=== PATIENT | male | born 1945 | race Caucasian/White ===

== ENCOUNTER 2019-09-26 07:52 | Emergency (ER) | payer OTHER ==
[~2019-09-26] VITALS: Ht 177.8 cm; Wt 90.7 kg
[~2019-09-26 07:52] MED LIST: CYCL10; DIAZ5 PO; HYDACE5; IBUP800 PO; OXYACE5T PO
[2019-09-26 08:13] LABS: BASOPHILS ABSOLUTE AUTO 0.06 K/mm3 (0.00-0.23); BASOPHILS PERCENT AUTO 1 % (0-2); EOSINOPHILS ABSOLUTE AUTO 0.28 K/mm3 (0.00-0.68); EOSINOPHILS PERCENT AUTO 5 % (0-6); Hematocrit 43.4 % (37.0-53.0); Hemoglobin 14.9 g/dL (13.5-17.5); IMMATURE GRAN ABSOLUTE AUTO 0.01 K/mm3 (0.00-0.10); IMMATURE GRAN PERCENT AUTO 0 % (0-1); LYMPHOCYTES ABSOLUTE AUTO 1.99 K/mm3 (0.84-5.20); LYMPHOCYTES PERCENT AUTO 37 % (21-46); MONOCYTES ABSOLUTE AUTO 0.59 K/mm3 (0.16-1.47); MONOCYTES PERCENT AUTO 11 % (4-13); Mean Corpuscular HGB 31.3 pg (26.0-34.0); Mean Corpuscular HGB Conc 34.3 g/dL (31.5-36.5); Mean Corpuscular Volume 91 fL (80-100); Mean Platelet Volume 9.8 fL (9.1-12.4); NEUTROPHILS ABSOLUTE AUTO 2.46 K/mm3 (1.96-9.15); NEUTROPHILS PERCENT AUTO 46 % (41-73); Platelet Count 207 K/mm3 (150-400); RDW Coefficient Variation 12.6 % (11.7-14.2); RDW Standard Deviation 41.3 fL (35.1-46.3); Red Blood Cell Count 4.76 M/mm3 (4.30-5.90); White Blood Cell Count 5.39 K/mm3 (4.00-11.30)
[2019-09-26 08:31] LABS: Alanine Aminotransfer (ALT/SGP 25 U/L (12-78); Albumin, Blood 3.4 g/dL (3.4-5.0); Albumin/Globulin Ratio 0.8 (0.8-1.8); Alk Phos 67 U/L (50-136); Anion Gap 5 mmol/L (6-16); Aspartate Aminotrans (AST/SGOT 20 U/L (12-37); Bilirubin, Total 0.9 mg/dL (0.1-1.0); Blood Urea Nitrogen 20 mg/dL (8-24); CO2, Blood 28 mmol/L (21-32); Calcium, Blood 8.9 mg/dL (8.5-10.1); Chloride, Blood 105 mmol/L (98-108); Creatinine, Blood 1.05 mg/dL (0.60-1.20); Globulin, Blood 4.3 g/dL (2.2-4.0); Glomerular Filtration Rate >60 (60-); Glucose, Blood 107 mg/dL (70-99); Potassium, Blood 4.3 mmol/L (3.5-5.5); Sodium, Blood 138 mmol/L (136-145); Total Protein, Blood 7.7 g/dL (6.4-8.2)
[2019-09-26] MEDS ORDERED: Zofran4 MG PO (09:58)
[2019-09-26] MEDS ORDERED: MOTION RELIEF25 MG PO (09:58)
== END 2019-09-26 10:15 | disposition home or self-care (01) ==
LOC: ER 07:52
PROVIDERS: Emergency Medicine
DX: R42 Dizziness and giddiness (principal); R51 Headache
CPT/HCPCS: 70450; 80053; 85025; 93005; 93010; 96374; 99285-25; J2405

== ENCOUNTER 2019-10-29 19:22 | Emergency (ER) | payer OTHER ==
[~2019-10-29] VITALS: Ht 180.3 cm; Wt 93.0 kg
[~2019-10-29 19:22] MED LIST changes: +MOTION RELIEF25 MG PO; +Zofran4 MG PO
[2019-10-29 20:05] LABS: BASOPHILS ABSOLUTE AUTO 0.04 K/mm3 (0.00-0.23); BASOPHILS PERCENT AUTO 1 % (0-2); EOSINOPHILS PERCENT AUTO 1 % (0-6); Hemoglobin 14.4 g/dL (13.5-17.5); IMMATURE GRAN ABSOLUTE AUTO 0.03 K/mm3 (0.00-0.10); IMMATURE GRAN PERCENT AUTO 0 % (0-1); LYMPHOCYTES ABSOLUTE AUTO 1.42 K/mm3 (0.84-5.20); LYMPHOCYTES PERCENT AUTO 16 % (21-46); MONOCYTES ABSOLUTE AUTO 0.67 K/mm3 (0.16-1.47); MONOCYTES PERCENT AUTO 8 % (4-13); Mean Corpuscular HGB Conc 34.3 g/dL (31.5-36.5); Mean Corpuscular Volume 91 fL (80-100); NEUTROPHILS ABSOLUTE AUTO 6.46 K/mm3 (1.96-9.15); NEUTROPHILS PERCENT AUTO 74 % (41-73); Platelet Count 249 K/mm3 (150-400); RDW Coefficient Variation 12.3 % (11.7-14.2); RDW Standard Deviation 40.5 fL (35.1-46.3); Red Blood Cell Count 4.64 M/mm3 (4.30-5.90); White Blood Cell Count 8.72 K/mm3 (4.00-11.30)
[2019-10-29 20:25] LABS: Alanine Aminotransfer (ALT/SGP 21 U/L (12-78); Albumin, Blood 3.5 g/dL (3.4-5.0); Albumin/Globulin Ratio 0.9 (0.8-1.8); Alk Phos 69 U/L (50-136); Anion Gap 11 mmol/L (6-16); Aspartate Aminotrans (AST/SGOT 18 U/L (12-37); Bilirubin, Total 1.1 mg/dL (0.1-1.0); Blood Urea Nitrogen 18 mg/dL (8-24); Bun/Creatinine Ratio 19.9 (12.0-20.0); CO2, Blood 20 mmol/L (21-32); Calcium, Blood 8.8 mg/dL (8.5-10.1); Chloride, Blood 107 mmol/L (98-108); Globulin, Blood 4.1 g/dL (2.2-4.0); Glomerular Filtration Rate >60 (60-); Glucose, Blood 100 mg/dL (70-99); Potassium, Blood 3.4 mmol/L (3.5-5.5); Sodium, Blood 138 mmol/L (136-145); Total Protein, Blood 7.6 g/dL (6.4-8.2); Troponin I <0.015 ng/mL (0.000-0.040)
== END 2019-10-29 21:22 | disposition home or self-care (01) ==
LOC: ER 19:22
PROVIDERS: Emergency Medicine
DX: R42 Dizziness and giddiness (principal); R11.2 Nausea with vomiting, unspecified
CPT/HCPCS: 80053; 84484; 85025; 93005; 93010; 99284-25

== ENCOUNTER 2021-12-18 08:40 | Inpatient (IN) | payer OTHER ==
[~2021-12-18] VITALS: Ht 177.8 cm; Wt 97.8 kg
[2021-12-18 09:25] LABS: BASOPHILS ABSOLUTE AUTO 0.01 K/mm3 (0.00-0.23); BASOPHILS PERCENT AUTO 0 % (0-2); EOSINOPHILS ABSOLUTE AUTO 0.01 K/mm3 (0.00-0.68); EOSINOPHILS PERCENT AUTO 0 % (0-6); Hematocrit 34.5 % (37.0-53.0); Hemoglobin 12.2 g/dL (13.5-17.5); Mean Corpuscular HGB 32.5 pg (26.0-34.0); Mean Corpuscular HGB Conc 35.4 g/dL (31.5-36.5); Mean Corpuscular Volume 92 fL (80-100); RDW Coefficient Variation 12.1 % (11.7-14.2); RDW Standard Deviation 41.2 fL (35.1-46.3); Red Blood Cell Count 3.75 M/mm3 (4.30-5.90); White Blood Cell Count 2.41 K/mm3 (4.00-11.30)
[2021-12-18 09:35] LABS: Albumin, Blood 2.6 g/dL (3.4-5.0); Albumin/Globulin Ratio 0.7 (0.8-1.8); Bilirubin, Total 0.9 mg/dL (0.1-1.0); Bun/Creatinine Ratio 15.3 (12.0-20.0); Calcium, Blood 8.2 mg/dL (8.5-10.1); Creatinine, Blood 1.31 mg/dL (0.60-1.20); Globulin, Blood 3.8 g/dL (2.2-4.0); Potassium, Blood 3.8 mmol/L (3.5-5.5); Total Protein, Blood 6.4 g/dL (6.4-8.2)
[2021-12-18 09:57] LABS: IMMATURE GRAN ABSOLUTE AUTO 0.01 K/mm3 (0.00-0.10); IMMATURE GRAN PERCENT AUTO 0 % (0-1); LYMPHOCYTES PERCENT AUTO 33 % (21-46); MONOCYTES ABSOLUTE AUTO 0.17 K/mm3 (0.16-1.47); MONOCYTES PERCENT AUTO 7 % (4-13); NEUTROPHILS ABSOLUTE AUTO 1.41 K/mm3 (1.96-9.15); NEUTROPHILS PERCENT AUTO 59 % (41-73)
[2021-12-18 10:01] LABS: Influenza A, PCR NEGATIVE (NEGATIVE); Influenza B, PCR NEGATIVE (NEGATIVE); Resp Syncytial Virus, PCR NEGATIVE (NEGATIVE); SARS-Cov-2 (COVID-19) PCR, MMC NEGATIVE (NEGATIVE)
[2021-12-18 10:47] LABS: BASOPHILS ABSOLUTE AUTO 0.01 K/mm3 (0.00-0.23); BASOPHILS PERCENT AUTO 0 % (0-2); EOSINOPHILS PERCENT AUTO 0 % (0-6); Hematocrit 34.5 % (37.0-53.0); Hemoglobin 12.1 g/dL (13.5-17.5); Mean Corpuscular HGB 32.4 pg (26.0-34.0); Mean Corpuscular HGB Conc 35.1 g/dL (31.5-36.5); Mean Corpuscular Volume 93 fL (80-100); Mean Platelet Volume 10.1 fL (9.1-12.4); Platelet Count 90 K/mm3 (150-400); RDW Coefficient Variation 12.2 % (11.7-14.2); RDW Standard Deviation 42.1 fL (35.1-46.3); Red Blood Cell Count 3.73 M/mm3 (4.30-5.90)
[2021-12-18 11:01] LABS: IMMATURE GRAN ABSOLUTE AUTO 0.02 K/mm3 (0.00-0.10); IMMATURE GRAN PERCENT AUTO 1 % (0-1); LYMPHOCYTES PERCENT AUTO 32 % (21-46); MONOCYTES ABSOLUTE AUTO 0.17 K/mm3 (0.16-1.47); MONOCYTES PERCENT AUTO 7 % (4-13); NEUTROPHILS PERCENT AUTO 60 % (41-73)
[2021-12-18] MEDS ORDERED: LEVSOD25 PO (11:43)
[2021-12-18] MEDS ORDERED: ATOR20 PO (11:43)
[2021-12-18] MEDS ORDERED: DICLOFENAC SOD100 G1 TOP (11:43)
[2021-12-18] MEDS ORDERED: ERGO50000 PO (11:45)
[2021-12-18] MEDS ORDERED: MENTHOL-CAMPHO120 GM TOP (11:45)
--- NOTE | 2021-12-18 18:37 | NUR ---
P TARRIVED TO THE MEDICAL FLOOR FROM THE ER VIA RNEY. THE PT WAS TRANSFERED FROM GURNEY TO BED USEING A SLIDER SHEET. THE PT WAS ORIENTED TO THE ROOM LAYOUT AND CALL SYSTEM. THE PT APPEARS TO BE BREATHING EASILY ON RA AT THIS TIME. PT COMPLAING OF BACK PAIN FROM LAYING ON THE ER GURNEY A HEATING PAD WAS PLACED UNDER THE PTS BACK. THE PT DECLINED TYLENOL AT THIS TIME. PT ANSWERED QUESTIONS APPROPRIATLY. FAMILY IS AT THE BEDSIDE AT THIS TIME CALL LIGHT IN REACH.
[2021-12-19 06:21] LABS: BASOPHILS ABSOLUTE AUTO 0.01 K/mm3 (0.00-0.23); BASOPHILS PERCENT AUTO 0 % (0-2); EOSINOPHILS ABSOLUTE AUTO 0.01 K/mm3 (0.00-0.68); EOSINOPHILS PERCENT AUTO 0 % (0-6); Hematocrit 34.6 % (37.0-53.0); Hemoglobin 12.3 g/dL (13.5-17.5); IMMATURE GRAN ABSOLUTE AUTO 0.02 K/mm3 (0.00-0.10); IMMATURE GRAN PERCENT AUTO 1 % (0-1); LYMPHOCYTES PERCENT AUTO 20 % (21-46); MONOCYTES ABSOLUTE AUTO 0.19 K/mm3 (0.16-1.47); MONOCYTES PERCENT AUTO 8 % (4-13); Mean Corpuscular HGB 32.6 pg (26.0-34.0); Mean Corpuscular HGB Conc 35.5 g/dL (31.5-36.5); Mean Corpuscular Volume 92 fL (80-100); Mean Platelet Volume 10.2 fL (9.1-12.4); NEUTROPHILS ABSOLUTE AUTO 1.74 K/mm3 (1.96-9.15); NEUTROPHILS PERCENT AUTO 71 % (41-73); Platelet Count 90 K/mm3 (150-400); RDW Coefficient Variation 12.2 % (11.7-14.2); RDW Standard Deviation 41.4 fL (35.1-46.3); Red Blood Cell Count 3.77 M/mm3 (4.30-5.90); White Blood Cell Count 2.47 K/mm3 (4.00-11.30)
[2021-12-19 06:45] LABS: Albumin, Blood 2.4 g/dL (3.4-5.0); Albumin/Globulin Ratio 0.6 (0.8-1.8); Bun/Creatinine Ratio 17.6 (12.0-20.0); Calcium, Blood 8.1 mg/dL (8.5-10.1); Creatinine, Blood 1.31 mg/dL (0.60-1.20); Globulin, Blood 3.7 g/dL (2.2-4.0); Potassium, Blood 3.6 mmol/L (3.5-5.5); Total Protein, Blood 6.1 g/dL (6.4-8.2)
[2021-12-19 07:24] LABS: International Normalized Ratio 1.08; Prothrombin Time Results 11.3 Sec (9.7-11.5)
[2021-12-19 08:28] LABS: Source, Urine Voided
[2021-12-19 08:32] LABS: Appearance, Urine Clear (Clear); Bilirubin, Urine Neg (Neg); Blood, Urine 3+ (Neg); Color, Urine Yellow (P-Yellow); Glucose Qualitative, Urine Neg (Neg); Ketones, Urine Neg (Neg); Leukocyte Esterase, Urine Neg (Neg); Nitrite, Urine Neg (Neg); Protein, Urine 2+ (Neg); Specific Gravity, Urine 1.015 (1.003-1.022); Urobilinogen, Urine 1+ (Normal)
[2021-12-19 08:42] LABS: Bacteria Many /hpf; Squamous Epithelial Cells Not Seen /hpf (Few); White Blood Cells, Urine 0-2 /hpf (0-5)
[2021-12-19 08:43] LABS: Mucus Light (0-Heavy); Other Crystals Many /hpf
[2021-12-19 10:30] LABS: Adenovirus F 40/41 Not Detected (NOT DETECT); Astrovirus Not Detected (NOT DETECT); Campylobacter Sp Not Detected (NOT DETECT); Cryptosporidium Not Detected (NOT DETECT); Cyclospora Cayetanensis Not Detected (NOT DETECT); E. Coli O157 Not Detected (NOT DETECT); Entamoeba Histolytica Not Detected (NOT DETECT); Enteroaggregative E. coli-EAEC Not Detected (NOT DETECT); Enteropathogenic E. coli-EPEC Not Detected (NOT DETECT); Enterotoxigenic E. coli-ETEC Not Detected (NOT DETECT); Giardia Lamblia Not Detected (NOT DETECT); Norovirus GI/GII Not Detected (NOT DETECT); Plesiomonas Shigelloides Not Detected (NOT DETECT); Rotavirus A Not Detected (NOT DETECT); Salmonella Sp Not Detected (NOT DETECT); Shiga Toxin-prod E. coli-STEC Not Detected (NOT DETECT); Shigella/Enteroin E. coli-EIEC Not Detected (NOT DETECT); Vibrio Cholerae Not Detected (NOT DETECT); Vibrio Sp Not Detected (NOT DETECT); Yersinia Enterocolitica Not Detected (NOT DETECT)
[2021-12-19 10:31] LABS: Sapovirus Not Detected (NOT DETECT)
[2021-12-19 12:15] LABS: IMMATURE RETIC FRACTION 5.3 % (2.3-16.0); RETIC HGB EQUIVALENT 34.8 pg (28.20-36.60); RETICULOCYTE ABSOLUTE 0.0269 M/mm3 (0.0200-0.1100); RETICULOCYTE COUNT PERCENT 0.73 % (0.50-2.50)
--- NOTE | 2021-12-19 17:55 | NUR ---
PT IS A/OX3, COOPERATIVE. UP WITH 2 PERSON MAX ASSIST. THE PT HAS BEEN SOMULANT T/O THE DAY. PT NEEDS ASSISTANCE WITH MEALS AND TOILETING. PT APPEARS TO BE BREATHING EASILY ON RA. THE PT HAS A FLUSHED LOOK. DR. FAN CONSULTED ON THE PT TODAY FOR HEMATOLOGY. THE PTS FAMILY WAS IN TO SEE THE PT T/O THE DAY. CALL LIGHT IN REACH WILL CONTINUE TO MONITOR AND ASSESS FOR CHANGES
[2021-12-20 06:01] LABS: BASOPHILS ABSOLUTE AUTO 0.01 K/mm3 (0.00-0.23); BASOPHILS PERCENT AUTO 0 % (0-2); EOSINOPHILS ABSOLUTE AUTO 0.02 K/mm3 (0.00-0.68); EOSINOPHILS PERCENT AUTO 1 % (0-6); Hemoglobin 11.5 g/dL (13.5-17.5); Mean Corpuscular HGB 32.8 pg (26.0-34.0); Mean Corpuscular HGB Conc 34.8 g/dL (31.5-36.5); Mean Corpuscular Volume 94 fL (80-100); Mean Platelet Volume 10.4 fL (9.1-12.4); Platelet Count 90 K/mm3 (150-400); RDW Coefficient Variation 12.4 % (11.7-14.2); RDW Standard Deviation 43.2 fL (35.1-46.3); Red Blood Cell Count 3.51 M/mm3 (4.30-5.90); White Blood Cell Count 2.58 K/mm3 (4.00-11.30)
[2021-12-20 06:12] LABS: Bun/Creatinine Ratio 16.2 (12.0-20.0); Calcium, Blood 7.7 mg/dL (8.5-10.1); Creatinine, Blood 1.48 mg/dL (0.60-1.20)
[2021-12-20 06:15] LABS: IMMATURE GRAN ABSOLUTE AUTO 0.02 K/mm3 (0.00-0.10); IMMATURE GRAN PERCENT AUTO 1 % (0-1); LYMPHOCYTES ABSOLUTE AUTO 0.43 K/mm3 (0.84-5.20); LYMPHOCYTES PERCENT AUTO 17 % (21-46); MONOCYTES ABSOLUTE AUTO 0.13 K/mm3 (0.16-1.47); MONOCYTES PERCENT AUTO 5 % (4-13); NEUTROPHILS ABSOLUTE AUTO 1.97 K/mm3 (1.96-9.15); NEUTROPHILS PERCENT AUTO 76 % (41-73)
--- NOTE | 2021-12-20 07:12 | NUR ---
76 year old [employer] who has hx of 3 strokes in last 2 years in same area & hx of closed head injuries as a child continues to be incontinent weak & have flat affect with moaning & pain intermittantly. says PT fell at home multiple times & hit his head. He has very poor appetite & continues on IVF LR at 125 ml hr. updated on PT condition concerns & plan of care.
[2021-12-20 08:11] LABS: HIV AB/P24 AG SCREEN Non Reactive (Non Reactive)
[2021-12-20 08:11] LABS: COMPLEMENT C3, SERUM 128 mg/dL (82-167)
[2021-12-20 09:11] LABS: IMMUNOGLOBULIN A, QN, SERUM 478 mg/dL (61-437); IMMUNOGLOBULIN G, QN, SERUM 614 mg/dL (603-1613); IMMUNOGLOBULIN M, QN, SERUM 38 mg/dL (15-143)
[2021-12-20 14:11] LABS: ANTI-DSDNA ANTIBODIES <1 IU/mL (0-9); RNP ANTIBODIES 0.2 AI (0.0-0.9); SJOGREN'S ANTI-SS-A <0.2 AI (0.0-0.9); SJOGREN'S ANTI-SS-B <0.2 AI (0.0-0.9); SMITH ANTIBODIES <0.2 AI (0.0-0.9)
--- NOTE | 2021-12-20 17:17 | NUR ---
PT AOX3 AND COOPERATIVE OF CARE. PT STARTED OUT SHIFT VERY TIRED NOT TALKING MUCH WITH A LOW HR 39-42. DR KING NOTIFIED AND INSTRUCTED PT TO JUST BE MONITORED. PT SEEMED TO BECOME MORE ALERT DAY PROGRESSED, BUT HAS HAD A VERY LOW GRADE TEMP 99.2 TO 100 AND WAS TREATED PER EMAR.PT WAS ALSO SYMTOMATIC OF A FEVER WITH SHAKING AND FEELING VERY COLD. PT HAS BEEN IN CONTENTENT OF URINE, YET HE HAS ALSO USED URINAL. PT HAD AND INCREASED BP OF 181/[address] SAHNI ADDED PRN IV MED TO EMAR. BP HOWEVER LOWERED WITHOUT TREATMENT TO 153/83. RESPIRATIONS HAD ALSO INCREASED [address] SAHNI HAS INSTRUCTED TO HOLD TYLENOL UNLESS TEMP UP TO 102 AND TO CONTINUE TO MONITOR.
[2021-12-21 00:07] LABS: HBSAG SCREEN Negative (Negative); HCV AB 0.1 (0.0-0.9); HEP A AB, IGM Negative (Negative); HEP B CORE AB, TOT Negative (Negative)
--- NOTE | 2021-12-21 05:38 | NUR ---
SHIFT SUMMARY NOC: START OF SHIFT PT FEBRILE 103.1 F ORAL AND TYMPANIC. ALSO O2 SATS 88-89% ON ROOM AIR. PT GIVEN PRN TYLENOL AND PLACED ON 4L NC. TEMP RECHECK 98.2 F AND O2 96% ON 4L NC. PT AFEBRILE REST OF NIGHT BUT HAS BEEN DIAPHORETIC WITH SHIVERING, WARM TO TOUCH. PT STATES GENERALIZED ACHY PAIN TO WHOLE BODY. PT RESPONDS APPROPRIATELY AND FOLLOWS COMMANDS. PT TOO WEAK TO USE URINAL BY SELF. HAD 2 BOWEL MOVEMENTS INTO BRIEF. INCONTINENT OF BOWEL AND BLADDER.
[2021-12-21 08:52] LABS: BASOPHILS ABSOLUTE AUTO 0.01 K/mm3 (0.00-0.23); BASOPHILS PERCENT AUTO 0 % (0-2); EOSINOPHILS ABSOLUTE AUTO 0.01 K/mm3 (0.00-0.68); EOSINOPHILS PERCENT AUTO 0 % (0-6); Hematocrit 33.5 % (37.0-53.0); Hemoglobin 11.5 g/dL (13.5-17.5); Mean Corpuscular HGB 32.5 pg (26.0-34.0); Mean Corpuscular HGB Conc 34.3 g/dL (31.5-36.5); Mean Corpuscular Volume 95 fL (80-100); Mean Platelet Volume 10.1 fL (9.1-12.4); Platelet Count 105 K/mm3 (150-400); RDW Coefficient Variation 12.7 % (11.7-14.2); RDW Standard Deviation 43.8 fL (35.1-46.3); Red Blood Cell Count 3.54 M/mm3 (4.30-5.90); White Blood Cell Count 2.79 K/mm3 (4.00-11.30)
[2021-12-21 08:53] LABS: IMMATURE GRAN ABSOLUTE AUTO 0.02 K/mm3 (0.00-0.10); IMMATURE GRAN PERCENT AUTO 1 % (0-1); LYMPHOCYTES ABSOLUTE AUTO 0.51 K/mm3 (0.84-5.20); LYMPHOCYTES PERCENT AUTO 18 % (21-46); MONOCYTES ABSOLUTE AUTO 0.14 K/mm3 (0.16-1.47); MONOCYTES PERCENT AUTO 5 % (4-13); NEUTROPHILS PERCENT AUTO 75 % (41-73)
[2021-12-21 09:13] LABS: Bun/Creatinine Ratio 14.5 (12.0-20.0); Calcium, Blood 7.9 mg/dL (8.5-10.1); Creatinine, Blood 1.59 mg/dL (0.60-1.20); Potassium, Blood 4.3 mmol/L (3.5-5.5)
[2021-12-21 15:10] LABS: ALBUMIN 2.5 g/dL (2.9-4.4); ALPHA-1-GLOBULIN 0.3 g/dL (0.0-0.4); ALPHA-2-GLOBULIN 0.7 g/dL (0.4-1.0); BETA GLOBULIN 0.9 g/dL (0.7-1.3); GAMMA GLOBULIN 0.7 g/dL (0.4-1.8); GLOBULIN, TOTAL 2.6 g/dL (2.2-3.9); M-SPIKE Not Observed g/dL (Not Observed); PROTEIN, TOTAL, SERUM 5.1 g/dL (6.0-8.5)
--- NOTE | 2021-12-21 18:32 | NUR ---
NO ACUTE CHANGES PT IS AO AND DOING WELL. PT WORKED WELL WITH PT AND IS A ONE TO TWO PERSON TO CHAIR WITH GAITBELT AND WALKER. PT CONTINUES WITH A VERY LOW GRADE FEVER AND IS BEING MONITORED. NO DISTRESS NOTED AT THIS TIME WILL CONTINUE TO MONITOR CALL LIGHT WITHIN REACH.
[2021-12-22 05:36] LABS: BASOPHILS ABSOLUTE AUTO 0.01 K/mm3 (0.00-0.23); BASOPHILS PERCENT AUTO 0 % (0-2); EOSINOPHILS ABSOLUTE AUTO 0.02 K/mm3 (0.00-0.68); EOSINOPHILS PERCENT AUTO 1 % (0-6); Hematocrit 33.5 % (37.0-53.0); Hemoglobin 11.5 g/dL (13.5-17.5); IMMATURE GRAN ABSOLUTE AUTO 0.01 K/mm3 (0.00-0.10); IMMATURE GRAN PERCENT AUTO 0 % (0-1); LYMPHOCYTES ABSOLUTE AUTO 0.62 K/mm3 (0.84-5.20); LYMPHOCYTES PERCENT AUTO 19 % (21-46); MONOCYTES ABSOLUTE AUTO 0.19 K/mm3 (0.16-1.47); MONOCYTES PERCENT AUTO 6 % (4-13); Mean Corpuscular HGB 32.5 pg (26.0-34.0); Mean Corpuscular HGB Conc 34.3 g/dL (31.5-36.5); Mean Corpuscular Volume 95 fL (80-100); Mean Platelet Volume 10.2 fL (9.1-12.4); NEUTROPHILS ABSOLUTE AUTO 2.48 K/mm3 (1.96-9.15); NEUTROPHILS PERCENT AUTO 75 % (41-73); Platelet Count 139 K/mm3 (150-400); RDW Coefficient Variation 12.5 % (11.7-14.2); RDW Standard Deviation 43.8 fL (35.1-46.3); Red Blood Cell Count 3.54 M/mm3 (4.30-5.90); White Blood Cell Count 3.33 K/mm3 (4.00-11.30)
--- NOTE | 2021-12-22 05:56 | NUR ---
SHIFT SUMMARY AOX3-SELF, PLACE, SITUATION. VERY SLOW TO RESPOND & DROWSY. ANSWERS QUESTIONS APPROPRIATE & FOLLOWS DIRECTIONS. VSS. AFEBRILE. SKIN HOT, FLUSHED TO TOUCH. REPORTS DIZZINESS & SENSITIVITY TO LIGHT. DENIES PAIN, N/V, DYSPNEA. LS DIM c SCATTERED EXP WHEEZES, SPO2 >90% ON 2L O2. ABD MOD DISTENDED, LACK OF APPETITE, HAD 2 LIQUID BM THIS SHIFT. INCONT OF URINE. CALL LIGHT & BED ALARM IN PLACE. WILL MONITOR.
[2021-12-22 06:08] LABS: Albumin, Blood 2.1 g/dL (3.4-5.0); Albumin/Globulin Ratio 0.6 (0.8-1.8); Bilirubin, Total 0.7 mg/dL (0.1-1.0); Bun/Creatinine Ratio 14.1 (12.0-20.0); Calcium, Blood 7.9 mg/dL (8.5-10.1); Creatinine, Blood 1.84 mg/dL (0.60-1.20); Globulin, Blood 3.6 g/dL (2.2-4.0); Potassium, Blood 4.3 mmol/L (3.5-5.5); Total Protein, Blood 5.7 g/dL (6.4-8.2)
--- NOTE | 2021-12-22 18:22 | NUR ---
SHIFT SUMMARY PATIENT DENIES PAIN AND NAUSEA. PATIENT VISIBLY SHORT OF BREATH DURING SHIFT. PATIENT RESP INCREASED. PATIENT SOUNDS VERY WHEEZY. HR ALSO READING 46. DR. DANIELS NOTIFIED. NEW ORDERS FOR TELE, EKG, AND EPI BREATHING TREATMENT. ALSO ALBUTEROL BREATHING TREATMENT GIVEN. GOOD EFFECT. PATIENT HAS BI/TRIMENY ON TELE BUT HR IN THE 80S. IN AFTERNOON, PATIENT RESP INCREASED AGAIN, PATIENT COMPLAINS OF SOB, CALLED FOR BREATHING TREATMENT, GOOD EFFECT. PATIENT IS A 2P FOR TRANSFERS. DUE TO PATIENT BREATHING, PT DID NOT WORK WITH PATIENT TODAY. AT BEDSIDE FOR MOST OF SHIFT. PATIENT IS EATING AND DRINKING WELL. PATIENT IS PLEASANT AND COOPERATIVE WITH CARE.
[2021-12-23 05:57] LABS: Hematocrit 34.9 % (37.0-53.0); Hemoglobin 11.8 g/dL (13.5-17.5); Mean Corpuscular HGB 32.3 pg (26.0-34.0); Mean Corpuscular HGB Conc 33.8 g/dL (31.5-36.5); Mean Corpuscular Volume 96 fL (80-100); Mean Platelet Volume 10.1 fL (9.1-12.4); Platelet Count 145 K/mm3 (150-400); RDW Coefficient Variation 12.7 % (11.7-14.2); RDW Standard Deviation 44.9 fL (35.1-46.3); Red Blood Cell Count 3.65 M/mm3 (4.30-5.90); White Blood Cell Count 3.09 K/mm3 (4.00-11.30)
[2021-12-23 06:20] LABS: BAND PERCENT MAN 9 % (0-8); BASOPHILS PERCENT MAN 0 % (0-2); EOSINOPHILS PERCENT MAN 0 % (0-6); LYMPHOCYTES ABSOLUTE MAN 0.18 K/mm3 (0.84-5.20); LYMPHOCYTES PERCENT MAN 6 % (21-46); MONOCYTES ABSOLUTE MAN 0.15 K/mm3 (0.16-1.47); MONOCYTES PERCENT MAN 5 % (4-13); NEUTROPHILS ABSOLUTE MAN 2.75 K/mm3 (1.96-9.15); SEG NEUTROPHILS PERCENT MAN 80 % (41-73); TOTAL CELLS COUNTED 100
[2021-12-23 06:35] LABS: Albumin/Globulin Ratio 0.5 (0.8-1.8); Bilirubin, Total 0.6 mg/dL (0.1-1.0); Bun/Creatinine Ratio 19.9 (12.0-20.0); Calcium, Blood 8.2 mg/dL (8.5-10.1); Creatinine, Blood 1.56 mg/dL (0.60-1.20); Potassium, Blood 4.2 mmol/L (3.5-5.5)
--- NOTE | 2021-12-23 07:24 | NUR ---
SHIFT SUMMARY AOX2-SELF, PLACE, FOLLOWING DIRECTIONS. DIFFICULT TO ASSESS ORIENTATION @BEGINNING OF SHIFT FOR PT WAS VERY LETHARGIC. SLOW TO RESPOND & HAS NONSENSICAL RESPONSES AT TIMES. VSS. TELE NSR c BIGEMINAL & TRIGEMINAL PVC'S. SPO2 >90% ON 2L O2. HELD HS KEFLEX BECAUSE PER REPORT MD CONCERNED ABOUT PT HAVING REACTION TO MEDICATION. RED RASH T/O UPPER BACK. EXTREMELY DIAPHORETIC T/O MOST OF NIGHT. AFEBRILE. MORE AWAKE & ALERT THIS AM THEN LAST NIGHT, EVEN USED CALL LIGHT 2X TO HAVE ASSISTANCE c URINAL.
--- NOTE | 2021-12-23 17:57 | NUR ---
SHIFT SUMMARY PATIENT DENIES PAIN, NAUSEA, AND SHORTNESS OF BREATH. PATIENT IS A 2P FOR TRANSFERS. PATIENT WAS UP IN CHAIR FOR MEALS TODAY. PATIENT MUCH MORE ALERT THIS SHIFT. PATIENT IS ON 2L VIA N/C, BUT FREQUENTLY TAKES IT OFF. EDUCATED ON IMPORTANCE OF WEARING O2. PATIENT ABLE TO NAP IN AFTERNOON. PATIENT AND SON VISITED TODAY. PATIENT IS EATING AND DRINKING WELL. PATIENT IS PLEASANT AND COOPERATIVE WITH CARE.
--- NOTE | 2021-12-24 04:48 | NUR ---
SHIFT SUMMARY A/OX3, FORGETFUL. GENERALIZED WEAKNESS, 2P MAX ASSIST TO BSC. DENIES PAIN. CURRENTLY ON 2L VIA NC WITH SATS GREATER THAN 92. EXP. WHEEZES T/O. TELE VENT. BIGEMENY WITH FREQUENT PVC'S IN THE LOW 100S PER TELE MONITOR. BED IN LOWEST POSITION WITH CALL LIGHT IN REACH. WILL CONTINUE TO MONITOR AND REPORT TO ONCOMING RN.
[2021-12-24 06:15] LABS: BASOPHILS PERCENT AUTO 0 % (0-2); EOSINOPHILS PERCENT AUTO 0 % (0-6); Hematocrit 32.2 % (37.0-53.0); Hemoglobin 10.9 g/dL (13.5-17.5); IMMATURE GRAN ABSOLUTE AUTO 0.05 K/mm3 (0.00-0.10); IMMATURE GRAN PERCENT AUTO 1 % (0-1); LYMPHOCYTES ABSOLUTE AUTO 0.48 K/mm3 (0.84-5.20); LYMPHOCYTES PERCENT AUTO 7 % (21-46); MONOCYTES ABSOLUTE AUTO 0.17 K/mm3 (0.16-1.47); MONOCYTES PERCENT AUTO 2 % (4-13); Mean Corpuscular HGB 31.8 pg (26.0-34.0); Mean Corpuscular HGB Conc 33.9 g/dL (31.5-36.5); Mean Corpuscular Volume 94 fL (80-100); Mean Platelet Volume 10.7 fL (9.1-12.4); NEUTROPHILS ABSOLUTE AUTO 6.41 K/mm3 (1.96-9.15); NEUTROPHILS PERCENT AUTO 90 % (41-73); Platelet Count 163 K/mm3 (150-400); RDW Coefficient Variation 12.4 % (11.7-14.2); Red Blood Cell Count 3.43 M/mm3 (4.30-5.90); White Blood Cell Count 7.11 K/mm3 (4.00-11.30)
[2021-12-24 06:32] LABS: Albumin, Blood 2.1 g/dL (3.4-5.0); Anion Gap 8 mmol/L (6-16); Blood Urea Nitrogen 38 mg/dL (8-24); Bun/Creatinine Ratio 27.9 (12.0-20.0); CO2, Blood 23 mmol/L (21-32); Calcium, Blood 8.4 mg/dL (8.5-10.1); Chloride, Blood 106 mmol/L (98-108); Creatinine, Blood 1.36 mg/dL (0.60-1.20); Glomerular Filtration Rate 54 (60-); Glucose, Blood 170 mg/dL (70-99); Phosphorus, Blood 3.2 mg/dL (2.5-4.9); Potassium, Blood 3.6 mmol/L (3.5-5.5); Sodium, Blood 137 mmol/L (136-145)
--- NOTE | 2021-12-24 11:00 | NUR ---
0800 PT STATES SAW MOUSE ON ROOF OVERHANG. I DID NOT, BUT IS POSSIBLE.
--- NOTE | 2021-12-24 11:01 | NUR ---
PER TELE 0930 PT HAVING BI AND TRI GEMINY RATE 90'S , DID SPIKE TO 120'S THEN BACK. PT HAS RASH ON BACK. IN ELY. IS AWARE OF BOTH ITEM.
--- NOTE | 2021-12-24 17:48 | NUR ---
PT PLEASANT TODAY. TALKED ABOUT HIS SON SOME. BACKGROUND. DID WORK WITH P/T TODAY. IN TO VISIT. NO C/O PAIN TODAY. TELE D/C TODAY. CONTINUE ABX. BACK RASH CONTINUES. PENDING SNF PLACEMENT. BED IN LOW POSITION, CALL LITE IN REACH, CALLS APPROP
--- NOTE | 2021-12-25 05:47 | NUR ---
SHIFT SUMMARY PATIENT ALERT AND ORIENTED X3. MEDICATED PER EMAR FOR PAIN. HAD NO COMPLAINTS OF SHORTNESS OF BREATH. NO ACUTE ISSUES NOTED OVERNIGHT. CALL LIGHT WITHIN REACH. REPORT GIVEN TO ONCOMING RN.
[2021-12-25 05:57] LABS: BASOPHILS ABSOLUTE AUTO 0.01 K/mm3 (0.00-0.23); BASOPHILS PERCENT AUTO 0 % (0-2); EOSINOPHILS PERCENT AUTO 0 % (0-6); Hematocrit 33.4 % (37.0-53.0); Hemoglobin 11.3 g/dL (13.5-17.5); IMMATURE GRAN ABSOLUTE AUTO 0.05 K/mm3 (0.00-0.10); IMMATURE GRAN PERCENT AUTO 1 % (0-1); LYMPHOCYTES ABSOLUTE AUTO 0.37 K/mm3 (0.84-5.20); LYMPHOCYTES PERCENT AUTO 5 % (21-46); MONOCYTES ABSOLUTE AUTO 0.22 K/mm3 (0.16-1.47); MONOCYTES PERCENT AUTO 3 % (4-13); Mean Corpuscular HGB 32.5 pg (26.0-34.0); Mean Corpuscular HGB Conc 33.8 g/dL (31.5-36.5); Mean Corpuscular Volume 96 fL (80-100); Mean Platelet Volume 10.8 fL (9.1-12.4); NEUTROPHILS ABSOLUTE AUTO 6.27 K/mm3 (1.96-9.15); NEUTROPHILS PERCENT AUTO 91 % (41-73); Platelet Count 192 K/mm3 (150-400); RDW Coefficient Variation 12.7 % (11.7-14.2); Red Blood Cell Count 3.48 M/mm3 (4.30-5.90); White Blood Cell Count 6.92 K/mm3 (4.00-11.30)
[2021-12-25 06:10] LABS: Albumin, Blood 2.3 g/dL (3.4-5.0); Albumin/Globulin Ratio 0.6 (0.8-1.8); Bilirubin, Total 0.6 mg/dL (0.1-1.0); Bun/Creatinine Ratio 28.6 (12.0-20.0); Calcium, Blood 8.5 mg/dL (8.5-10.1); Creatinine, Blood 1.33 mg/dL (0.60-1.20); Globulin, Blood 3.8 g/dL (2.2-4.0); Potassium, Blood 3.7 mmol/L (3.5-5.5); Total Protein, Blood 6.1 g/dL (6.4-8.2)
[2021-12-25 13:11] LABS: Influenza A, PCR NEGATIVE (NEGATIVE); Influenza B, PCR NEGATIVE (NEGATIVE); Resp Syncytial Virus, PCR NEGATIVE (NEGATIVE)
[2021-12-25 13:14] LABS: SARS-Cov-2 (COVID-19) PCR, MMC POSITIVE (NEGATIVE)
--- NOTE | 2021-12-25 18:32 | NUR ---
PT PLEASANT TODAY. NO C/O PAIN. DISSAPOINTED SNF REFUSED R/T NEW COVID DIAGNOSIS. PT IMPROVING OVERALL. DID WALK SOME STAIRS AT P/T TODAY. SOME BALANCE ISSUES PER P/T. NO OTHER CONCERNS NOTED TODAY. BED IN LOW POSITION, CALL LITE IN REACH, CALLS APPROP
[2021-12-26 05:18] LABS: BASOPHILS PERCENT AUTO 0 % (0-2); EOSINOPHILS PERCENT AUTO 0 % (0-6); Hematocrit 30.9 % (37.0-53.0); Hemoglobin 10.5 g/dL (13.5-17.5); IMMATURE GRAN ABSOLUTE AUTO 0.04 K/mm3 (0.00-0.10); IMMATURE GRAN PERCENT AUTO 1 % (0-1); LYMPHOCYTES ABSOLUTE AUTO 0.56 K/mm3 (0.84-5.20); LYMPHOCYTES PERCENT AUTO 10 % (21-46); MONOCYTES ABSOLUTE AUTO 0.37 K/mm3 (0.16-1.47); MONOCYTES PERCENT AUTO 7 % (4-13); Mean Corpuscular HGB 32.3 pg (26.0-34.0); Mean Corpuscular Volume 95 fL (80-100); Mean Platelet Volume 10.4 fL (9.1-12.4); NEUTROPHILS ABSOLUTE AUTO 4.55 K/mm3 (1.96-9.15); NEUTROPHILS PERCENT AUTO 83 % (41-73); Platelet Count 195 K/mm3 (150-400); RDW Coefficient Variation 12.8 % (11.7-14.2); RDW Standard Deviation 44.7 fL (35.1-46.3); Red Blood Cell Count 3.25 M/mm3 (4.30-5.90); White Blood Cell Count 5.52 K/mm3 (4.00-11.30)
[2021-12-26 05:40] LABS: Albumin, Blood 2.3 g/dL (3.4-5.0); Albumin/Globulin Ratio 0.7 (0.8-1.8); Bilirubin, Total 0.8 mg/dL (0.1-1.0); Bun/Creatinine Ratio 27.6 (12.0-20.0); Calcium, Blood 8.5 mg/dL (8.5-10.1); Creatinine, Blood 1.16 mg/dL (0.60-1.20); Globulin, Blood 3.4 g/dL (2.2-4.0); Potassium, Blood 4.3 mmol/L (3.5-5.5); Total Protein, Blood 5.7 g/dL (6.4-8.2)
--- NOTE | 2021-12-26 07:21 | NUR ---
PT REQUESTING TO EXCERSICSE IN ROOM AND AMBULATED A COUPLE TIMES AROUND ROOM AT START OF SHIFT. NO NEW CHANGES NOTED OVERNIGHT. PT ASKING WHEN HE CAN GO HOME AND WANTING TO SPEAK TO MD REGARDING THIS. INFORMED PT MD WOULD SEE HIM IN THE MORNING AND HE CAN EXPRESS HIS CONCERNS.
--- NOTE | 2021-12-26 09:00 | NUR ---
PT SITTING IN ROOM. AND SON TO ROOM. HE WAS HOSTILE. ANGRY. MAD THAT THE PT MAY GO HOME TODAY, AND THAT THE PT DEMANDS TO GO [place] PER SON. SON STATES HE IS COVID AND CANT GO HOME. EXPLAINED THEY HAVE BEEN IN ROOM WITHOUT THEIR MASKS ADEQUATELY PLACED. THAT THEY HAVE BEEN VISITING WITH HIM AT HOME AND SHE LIVES WITH HIM. SO LIKELY HAS HAD COVID BUT NOT SHOWING SYMPTOMS FOR A WHILE. IT WOULD BE UNKNOWN WHERE HE GOT COVID, AND THAT THE FAMILY MAY OR MAY NOT HAVE. WOULD BE GOOD IDEA TO TEST ALL AND QUARANTINE NECESSARY. HE GOT MORE ANGRY AND DEMANDED FOR HIM TO STAY. EXPLAINED THAT WE DO NOT HOLD PATIENTS WHEN THEY CAN SAFELY BE RELEASED. COMPLAINED HE IS A DIFFICULT PERSON, EXPLAINED THIS IS NOT A REASON TO KEEP A PATIENT. EXPLAINED THAT PHYS THERAPY AGREES HE CAN MANEUVER HIS WAY SAFELY, HE WILL BE LIKELY DISCHARGED. SON WAS TOLD IF HE CONTINUES TO BE AGRESSIVE, ANGRY, THREATENING, WE WILL ESCORT HIM OFF HOSPITAL. HE AGREED TO BE CALM.
--- NOTE | 2021-12-26 09:00 | NUR ---
REPORTED 0900 INCIDENT TO PERSONAL CLOTHING LAUNDRY AIDE.
[2021-12-26] MEDS ORDERED: VISBIOME 112.51 EACH PO (12:08)
[2021-12-26] MEDS ORDERED: PRED20 PO (12:10)
--- NOTE | 2021-12-26 14:34 | NUR ---
DISCHARGE REVIEWED WITH PT. HE VERBALIZED UNDERSTANDING MEDS AND INST. STATES FEELS READY TO GO HOME. NO TELE. IV REMOVED BY AIDE. PT WHEELED TO DOOR AT 1435
== END 2021-12-26 14:31 | disposition home health service (06) | DRG 871 ==
LOC: ER 08:40 → ERHOLD 08:41 → MEDS 08:41 → ER 12:59 → ERHOLD 12:59 → EDBEDREQSVC 13:15 → MEDS 16:34 → ERHOLD 16:50 → MEDS 16:50
PROVIDERS: Emergency Medicine; Family Medicine; Internal Medicine Hematology & Oncology; Nurse Practitioner Acute Care; Student in an Organized Health Care Education/Training Program; ADMIT Internal Medicine
PROC: 3E03329 Introduction of Other Anti-infective into Peripheral Vein, Percutaneous Approach (ICD-10-PCS; principal; 2021-12-25)
PROC: 8E0ZXY6 Isolation (ICD-10-PCS; 2021-12-25)
PROC: 3E0333Z Introduction of Anti-inflammatory into Peripheral Vein, Percutaneous Approach (ICD-10-PCS; 2021-12-25)
DX: A41.89 Other specified sepsis (principal); J12.89 Other viral pneumonia; U07.1 COVID-19; D61.818 Other pancytopenia; N17.9 Acute kidney failure, unspecified; J44.0 Chronic obstructive pulmonary disease with (acute) lower respiratory infection; J44.1 Chronic obstructive pulmonary disease with (acute) exacerbation; Z66 Do not resuscitate; Z20.822 Contact with and (suspected) exposure to COVID-19; E78.5 Hyperlipidemia, unspecified; R82.71 Bacteriuria; R40.0 Somnolence; B27.00 Gammaherpesviral mononucleosis without complication; I49.3 Ventricular premature depolarization; L27.0 Generalized skin eruption due to drugs and medicaments taken internally; T36.1X5A Adverse effect of cephalosporins and other beta-lactam antibiotics, initial encounter; R65.20 Severe sepsis without septic shock; D63.8 Anemia in other chronic diseases classified elsewhere; K52.9 Noninfective gastroenteritis and colitis, unspecified; M19.90 Unspecified osteoarthritis, unspecified site; E86.0 Dehydration; E03.9 Hypothyroidism, unspecified; Z88.6 Allergy status to analgesic agent; Z88.8 Allergy status to other drugs, medicaments and biological substances; Z79.899 Other long term (current) drug therapy
CPT/HCPCS: 0241U; 36415; 70450; 71045; 74177; 80048; 80053; 80069; 81001; 82525; 82533; 82607; 82746; 82784; 83010; 83615; 83735; 83880; 84145; 84165; 84443; 84484; 85025; 85045; 85060; 85610; 86160; 86225; 86235; 86665; 86704; 86708; 86803; 87040; 87086; 87340; 87389; 87507; 93005; 93010; 94640; 94664; 94760; 96361; 96365; 96366; 96372; 96374; 96375; 96376; 97110; 97112; 97116; 97162; 97166; 97530; 97530-CO; 97535; 97535-CO; 99285-25; A9270; G0378; J0456; J0696; J1650; J2405; J2920; J2930; J7030; J7050; J7120; Q9967

== ENCOUNTER 2022-01-02 16:16 | Emergency (ER) | payer OTHER ==
[~2022-01-02] VITALS: Ht 177.8 cm; Wt 90.7 kg
[~2022-01-02 16:16] MED LIST changes: +ATOR20 PO; +DICLOFENAC SOD100 G1 TOP; +ERGO50000 PO; +LEVSOD25 PO; +MENTHOL-CAMPHO120 GM TOP; +PRED20 PO; +VISBIOME 112.51 EACH PO
[2022-01-02 17:34] LABS: BASOPHILS ABSOLUTE AUTO 0.01 K/mm3 (0.00-0.23); BASOPHILS PERCENT AUTO 0 % (0-2); EOSINOPHILS ABSOLUTE AUTO 0.02 K/mm3 (0.00-0.68); EOSINOPHILS PERCENT AUTO 1 % (0-6); Hematocrit 33.8 % (37.0-53.0); Hemoglobin 11.3 g/dL (13.5-17.5); IMMATURE GRAN ABSOLUTE AUTO 0.03 K/mm3 (0.00-0.10); IMMATURE GRAN PERCENT AUTO 1 % (0-1); LYMPHOCYTES ABSOLUTE AUTO 1.17 K/mm3 (0.84-5.20); LYMPHOCYTES PERCENT AUTO 39 % (21-46); MONOCYTES ABSOLUTE AUTO 0.17 K/mm3 (0.16-1.47); MONOCYTES PERCENT AUTO 6 % (4-13); Mean Corpuscular HGB Conc 33.4 g/dL (31.5-36.5); Mean Corpuscular Volume 96 fL (80-100); Mean Platelet Volume 9.7 fL (9.1-12.4); NEUTROPHILS ABSOLUTE AUTO 1.61 K/mm3 (1.96-9.15); NEUTROPHILS PERCENT AUTO 54 % (41-73); Platelet Count 213 K/mm3 (150-400); RDW Coefficient Variation 12.6 % (11.7-14.2); RDW Standard Deviation 44.1 fL (35.1-46.3); Red Blood Cell Count 3.53 M/mm3 (4.30-5.90); White Blood Cell Count 3.01 K/mm3 (4.00-11.30)
[2022-01-02 17:50] LABS: Albumin, Blood 2.2 g/dL (3.4-5.0); Albumin/Globulin Ratio 0.6 (0.8-1.8); Bilirubin, Total 0.9 mg/dL (0.1-1.0); Bun/Creatinine Ratio 13.5 (12.0-20.0); Calcium, Blood 8.1 mg/dL (8.5-10.1); Creatinine, Blood 1.11 mg/dL (0.60-1.20); Total Protein, Blood 6.2 g/dL (6.4-8.2)
[2022-01-02 19:56] LABS: Source, Urine Clean Catch
[2022-01-02 20:24] LABS: Bilirubin, Urine Neg (Neg); Blood, Urine Neg (Neg); Glucose Qualitative, Urine Neg (Neg); Ketones, Urine Neg (Neg); Leukocyte Esterase, Urine Neg (Neg); Nitrite, Urine Neg (Neg); Protein, Urine Neg (Neg); Specific Gravity, Urine 1.015 (1.003-1.022); Urobilinogen, Urine NORM (Normal)
[2022-01-02 20:35] LABS: Appearance, Urine Clear (Clear); Color, Urine Yellow (P-Yellow)
== END 2022-01-03 03:27 | disposition home or self-care (01) ==
LOC: ER 16:16
PROVIDERS: Emergency Medicine
DX: E86.0 Dehydration (principal); U07.1 COVID-19; B27.90 Infectious mononucleosis, unspecified without complication; D70.9 Neutropenia, unspecified; D64.9 Anemia, unspecified; J44.9 Chronic obstructive pulmonary disease, unspecified; E03.9 Hypothyroidism, unspecified; Z66 Do not resuscitate; Z79.899 Other long term (current) drug therapy
CPT/HCPCS: 36415; 71045; 80053; 81003; 85025; 93005; 93010; 99285-25

== ENCOUNTER 2022-07-05 01:13 | Inpatient (IN) | payer OTHER ==
[~2022-07-05] VITALS: Ht 177.8 cm; Wt 93.7 kg
[2022-07-05 02:08] LABS: BASOPHILS ABSOLUTE AUTO 0.04 K/mm3 (0.00-0.23); BASOPHILS PERCENT AUTO 1 % (0-2); EOSINOPHILS ABSOLUTE AUTO 0.17 K/mm3 (0.00-0.68); EOSINOPHILS PERCENT AUTO 3 % (0-6); Hematocrit 37.1 % (37.0-53.0); Hemoglobin 13.1 g/dL (13.5-17.5); IMMATURE GRAN ABSOLUTE AUTO 0.08 K/mm3 (0.00-0.10); IMMATURE GRAN PERCENT AUTO 1 % (0-1); LYMPHOCYTES ABSOLUTE AUTO 1.18 K/mm3 (0.84-5.20); LYMPHOCYTES PERCENT AUTO 18 % (21-46); MONOCYTES ABSOLUTE AUTO 0.35 K/mm3 (0.16-1.47); MONOCYTES PERCENT AUTO 5 % (4-13); Mean Corpuscular HGB 33.2 pg (26.0-34.0); Mean Corpuscular HGB Conc 35.3 g/dL (31.5-36.5); Mean Corpuscular Volume 94 fL (80-100); NEUTROPHILS ABSOLUTE AUTO 4.82 K/mm3 (1.96-9.15); NEUTROPHILS PERCENT AUTO 73 % (41-73); Platelet Count 184 K/mm3 (150-400); RDW Coefficient Variation 12.5 % (11.7-14.2); RDW Standard Deviation 42.9 fL (35.1-46.3); Red Blood Cell Count 3.95 M/mm3 (4.30-5.90); White Blood Cell Count 6.64 K/mm3 (4.00-11.30)
[2022-07-05 02:16] LABS: Albumin, Blood 3.2 g/dL (3.4-5.0); Albumin/Globulin Ratio 0.8 (0.8-1.8); Bilirubin, Total 0.4 mg/dL (0.1-1.0); Bun/Creatinine Ratio 20.7 (12.0-20.0); Calcium, Blood 8.7 mg/dL (8.5-10.1); Creatinine, Blood 1.35 mg/dL (0.60-1.20); Globulin, Blood 3.9 g/dL (2.2-4.0); Potassium, Blood 3.9 mmol/L (3.5-5.5); Total Protein, Blood 7.1 g/dL (6.4-8.2)
[2022-07-05 03:44] LABS: Anti-Xa UFH, PHA Monitoring <0.10 IU/mL; International Normalized Ratio 0.98; Prothrombin Time Results 10.3 Sec (9.7-11.5)
--- NOTE | 2022-07-05 06:39 | NUR ---
SHIFT SUMMARY ASSUMED CARE OF PT AT 0550. PT IS A/OX4. PT HAS A BRUISED R PINKY TOE. PT STATES FROM WOOD WORKING HE DROPPED A PEICE ON HIS FOOT. R ANKLE ALSO SWOLLEN, PT SAID FROM INJURY. PT WALKS BY HIMSELF WITH HELP OF CORDS. USES URINAL. URINE YELLOW AND CLEAR. WHEN DOING PT MED REC, PT STATES THAT HE DOES NOT TAKE ANY PERSCRIPTION MEDICATIONS DESPITE HAVING PREVIOUS ONES. HOSPITALIST AWARE AND ORDERING LABS. PT STATES THAT HE IS TOO OLD TO BE TAKING MEDICATIONS LIKE THAT AND EXPRESSED CONCERN ABOUT SIDE EFFECTS OF TAKING MEDICATIONS. PT STATES THAT HE DOES NOT USE THE INTERNET TO FIND INFORMATION.
[2022-07-05 07:04] LABS: CHOL/HDL RATIO 4.4; Cholesterol 179 mg/dL (50-200); HDL Cholesterol 41 mg/dL (>39); Low Density Lipoprotein Chol 125 mg/dL (0-110); Triglycerides 66 mg/dL (30-160); Very Low Density Lipoprot Chol 13 mg/dL (6-32)
--- NOTE | 2022-07-05 12:08 | NUR ---
AM NOTE: PATIENT ALERT AND ORIENTED. PERRLA WEARING GLASSES. CHRONIC CARPAL TUNNEL. UP WITH SBA TO HELP MANAGE CORDS. DENIES OVERALL PAIN. HISTORY OF RIGHT ANKLE INJURY WITH LIMITED ROM, ALTERED GAIT. RIGTH PINKY TOE WOUND, SEE CHART FOR PICTURE, CLEANED AND DRESSED. ON ROOM AIR, LUNGS SOUNDING CLEAR. DENIES COUGH/SOB. TELE SHOWING SR WITH HR 60-70'S. DENIES CHEST PAIN/PRESSURE. DENIES DIZZINESS. HEPARIN GTT INFUSING PER EMAR. BP STABLE. PPP. ECHO COMPLETED, RESULTS PENDING. DR. NGUYEN IN TO DISCUSS POSSIBLE ANGIO. PATIENT SEEMING UNSURE. THIS RN IN AFTER TO REINFORCE ANGIO EDUCATION. PATIENT WITHDRAWN, AND SEEMS DOWN. THIS RN ASKED IF PATIENT HAD QUESTIONS, PATIENT DENIES QUESTIONS OR BEING SAD. WHEN ASKED IF PATIENT WOULD LIKE ANGIO PATIENT STATES "I DON'T KNOW". THIS RN ASKED IF PATIENT WOULD LIKE RN TO CALL FAMILY AND WE COULD ALL DISCUSS ANGIO. PATIENT DENIES AND STATES WILL BE COMING IN. THIS RN THEN ASKED IF ANYTHING WAS UPSETTING PATIENT OR IF I COULD ANSWER MORE QUESTIONS ABOUT ANGIO AND PATIENT DENIES ANY QUESTIONS/BEING UPSET. DENIES ABDOMINAL PAIN/NAUSEA. BOWEL TONES PRESENT. REMAINS NPO AT THIS TIME. CALL LIGHT IN REACH. WILL CONTINUE TO MONITOR.
--- NOTE | 2022-07-05 12:16 | NUR ---
FAMILY AT BEDSIDE. THIS RN EDUCATED ABOUT ANGIOGRAM. FAMILY TO DISCUSS AND DECIDE ON ANGIO.
--- NOTE | 2022-07-05 13:10 | NUR ---
PATIENT AND FAMILY DECIDED TO GO AHEAD WITH ANGIO. CONSENT SIGNED AND IN CHART. DR. NGUYEN CALLED TO UPDATE ON ANGIO DECISION AND MOST RECENT TROP. PLAN FOR RIVER EXPEDITION GUIDE SOON. VITALS STABLE. HEPARIN CONTINUES TO INFUSE PER EMAR.
--- NOTE | 2022-07-05 13:52 | NUR ---
PATIENT TO GIFT SHOP ASSISTANT AT 1340
--- NOTE | 2022-07-05 16:30 | NUR ---
PATIENT RETURNS TO PCU 04 POST PHYSICAL THERAPY DIRECTOR AT 1550. REPORT FROM PHYSICAL THERAPY DIRECTOR RN, 2 STENTS PLACED AND 11ML PLACED IN RIGHT RADIAL TR BAND AT 1530. POST VITALS IN PROGRESS. RIGHT RADIAL SITE WNL. SOFT/NONTENDER. ARM BOARD IN PLACE. SPO2 BIOX PLETH WNL. PATIENT EDUCATED ON POST OP RADIAL PRECAUTIONS. COMPLAINS OF 5/10 CHEST PRESSURE POST PHYSICAL THERAPY DIRECTOR THAT REMAINS UNCHANGED FROM PHYSICAL THERAPY DIRECTOR. DENIES SHARP SHOOTING PAIN. CALL LIGHT IN REACH. FAMILY UPDATED. WILL CONTINUE TO MONITOR.
--- NOTE | 2022-07-05 18:44 | NUR ---
SHIFT SUMMARY: NO ACUTE CHANGES. POST OP VITALS COMPLETE AND STABLE. NS INFUSING PER EMAR. PLAN FOR EKG IN AM. TR BAND DEFLATION STARTED AT 1841. 2ML DEFLATED AT THIS TIME. NO SIGNS OF BLEEDING, REMAINS SOFT/NONTENDER. LAB DRAW IN ROOM AT THIS TIME. ARM BOARD REMAINS IN PLACE. WILL CONTINUE TO MONITOR.
--- NOTE | 2022-07-05 21:19 | NUR ---
ASSUMPTION OF CARE 0 THIS RN ASSUMED CARE OF PT AT 1900; REPORT RECEIVED FROM TAWANNA MARTINEZ. PT LYING IN BED; A&O X4 ALTHOUGH AFFECT IS FLAT. PT IS INTERACTING AND ANSWERING QUESTIONS APPROPRIATELY. VSS. PT DENIES SOB OR CHEST PRESSURE, BUT REPORTS CP 1.5/10. PT STATES THIS IS AN IMPROVEMENT FROM EARLIER AND STATES IT IS CONTINUING TO IMPROVE AND BECOME LESS. PT DENIES ANY CHANGES TO CP, DENIES N/V, LIGHTHEADNESS. TR BAND STILL IN PLACE, SITE LOOKED AT W/DAYSHIFT RN. NO HEMATOMA, BRUISING, OR REDNESS NOTED. PT DENIES PAIN OR NUMBNESS. PT REPORTS TINGLING, PT STATES THIS IS NOT NEW AND R/T CARPAL TUNNEL. PULSE OX IN PLACE ON R SIDE; SPO2 95%. PT COLOR ON THIS SITE IS WNL. WILL CONTINUE TO RECOVER SITE. ARMBOARD IN PLACE. NS INFUSING PER EMAR. PT DENIES ANY CONCERNS OR NEEDS AT THIS TIME. CALL LIGHT IN REACH AND BED IN LOWEST POSITION.
--- NOTE | 2022-07-06 01:29 | NUR ---
UPDATE TR BAND REMOVED AT 0125; TEGADERM PLACED OVER SITE. ARMBOARD IN PLACE. NO HEMATOMA, OOZING, DISCOLORATION, REDNESS OR TENDERNESS NOTED. PT DENIES NUMBNESS, TINGLING OR PAIN AT SITE. SPO2 IN PLACE ON THIS HAND. PT EDUCATION PROVIDED ABOUT RECOVERING BAND AND SITE; WELL EDUCATION TO CONTINUE NOT TO USE THIS ARM. PT VERBALIZES UNDERSTANDING. CALL LIGHT IN REACH AND BED IN LOWEST POSITION.
[2022-07-06 04:58] LABS: Bun/Creatinine Ratio 16.8 (12.0-20.0); Calcium, Blood 8.6 mg/dL (8.5-10.1); Creatinine, Blood 1.25 mg/dL (0.60-1.20); Potassium, Blood 3.9 mmol/L (3.5-5.5)
--- NOTE | 2022-07-06 06:25 | NUR ---
SHIFT SUMMARY PT REMAINS A&O X4. PT DID BEGIN TO INTERACT MORE W/THIS RN AND SMILED/JOKED AROUND. PT REPORTS CP HAS SUBSIDED AND HE IS FEELING BETTER. VS REMAINED STABLE THROUGHOUT SHIFT. PT REPORTS HE WAS ABLE TO GET SOME REST THROUGHOUT THE NIGHT, BUT "NOT MUCH". EKG COMPLETED AND IS IN CHART. PT USING URINAL INDEPENDENTLY. PT UP BATHROOM X1 AND HAD A SMALL BM. TR BAND REMOVED, TEGADERM IN PLACE AND ARMBOARD IN PLACE. SITE REMAINS WNL; NO CONCERNS OR CHANGES TO SITE. WILL UPDATE ONCOMING RN. CALL LIGHT IN REACH AND BED IN LOWEST POSITION.
--- NOTE | 2022-07-06 08:39 | NUR ---
AM NOTE: PATIENT ALERT AND ORIENTED X4. NEURO REMAINS UNCHANGED DAY SHIFT YESTERDAY. PERRLA, WEARING GLASSES. UP WITH SBA. SLIGHTLY IMPAIRED GAIT FROM PREVIOUS RIGHT ANKLE INJURY AND RIGHT PINKY TOE ACUTE INJURY, SEE PICTURE IN CHART. DRESSING CHANGED AND WOUND CLEANED. ON ROOM AIR, LUNGS SOUNDING CLEAR. DENIES SOB/COUGH. TELE SHOWING SINUS RHYTHM WITH HR 70-80'S. BP STABLE. DENIES CHEST PAIN/PRESSURE. CHEST PRESSURE POST ANGIO RESOLVED. NO SIGNS OF EDEMA. RIGHT RADIAL SITE WNL. REMAINS SOFT/NONTENDER, ARM BOARD IN PLACE. THIS RN REVIEWED POST ANGIO PRECAUTIONS AND NEW MEDICATIONS WITH PATIENT THIS AM, ABLE TO VERBALIZE INSTRUCTIONS BACK TO THIS RN. DENIES ABDOMINAL PAIN/NAUSEA. EATING WNL. VOIDING WNL. SPOKE WITH ON PHONE THIS AM AND PROVIDED UPDATE WITH PATIENT PERMISSION. CALL LIGHT IN REACH. WILL CONTINUE TO MONITOR.
[2022-07-06] MEDS ORDERED: ASPI81CH PO (09:17)
[2022-07-06] MEDS ORDERED: ATOR40TA PO (09:18)
[2022-07-06] MEDS ORDERED: BISA5EC PO (09:18)
[2022-07-06] MEDS ORDERED: DOCU100 PO (09:19)
[2022-07-06] MEDS ORDERED: DULCOLAX400 MG/5 M PO (09:20)
[2022-07-06] MEDS ORDERED: Lisinopril2.5 MG PO (09:20)
[2022-07-06] MEDS ORDERED: NITR.4SL SL (09:21)
[2022-07-06] MEDS ORDERED: METO25ER PO (09:21)
[2022-07-06] MEDS ORDERED: TICA90TA PO (09:22)
--- NOTE | 2022-07-06 11:34 | NUR ---
DISCHARGE: NO ACUTE CHANGES. VITALS SIGNS REMAINS STABLE AND PATIENT REMAINS CHEST PAIN/PRESSSURE FREE. NO TELE EVENTS. DISCHARGE INSTRUCTIONS REVIEWED WITH PATIENT AND SON. MEDICATIONS, FOLLOW UP APPOINTMENTS, CARDIAC REHAB, [place] DISCOUNT/FREE MONTH SUPPLY CARD, STENT CARD, RADIAL SITE CARE, AND S/S TO MONITOR FOR REVIEWED WITH PATIENT AND SON. BOTH PATIENT AND SON ABLE TO TEACH BACK ALL INSTRUCTIONS. IV REMOVED WNL. PATIENT TAKEN BY WHEELCHAIR TO SONS CAR WITH ALL PERSONAL BELONGINGS.
== END 2022-07-06 11:05 | disposition home or self-care (01) | DRG 247 ==
LOC: ER 01:13 → PCU 04:53
PROVIDERS: Family Medicine; Internal Medicine Cardiovascular Disease; Student in an Organized Health Care Education/Training Program; ADMIT Family Medicine
PROC: 027135Z Dilation of Coronary Artery, Two Arteries with Two Drug-eluting Intraluminal Devices, Percutaneous Approach (ICD-10-PCS; principal; 2022-07-05)
PROC: 4A023N7 Measurement of Cardiac Sampling and Pressure, Left Heart, Percutaneous Approach (ICD-10-PCS; 2022-07-05)
PROC: B245ZZ3 Ultrasonography of Left Heart, Intravascular (ICD-10-PCS; 2022-07-05)
PROC: B215YZZ Fluoroscopy of Left Heart using Other Contrast (ICD-10-PCS; 2022-07-05)
PROC: B211YZZ Fluoroscopy of Multiple Coronary Arteries using Other Contrast (ICD-10-PCS; 2022-07-05)
DX: I21.4 Non-ST elevation (NSTEMI) myocardial infarction (principal); Z28.21 Immunization not carried out because of patient refusal; I10 Essential (primary) hypertension; J44.9 Chronic obstructive pulmonary disease, unspecified; E78.00 Pure hypercholesterolemia, unspecified; E03.9 Hypothyroidism, unspecified; E66.3 Overweight; I25.10 Atherosclerotic heart disease of native coronary artery without angina pectoris; Z68.28 Body mass index [BMI] 28.0-28.9, adult; Z86.73 Personal history of transient ischemic attack (TIA), and cerebral infarction without residual deficits; Z87.891 Personal history of nicotine dependence; Z98.890 Other specified postprocedural states; Z86.718 Personal history of other venous thrombosis and embolism; Z79.899 Other long term (current) drug therapy; Z79.52 Long term (current) use of systemic steroids
CPT/HCPCS: 36415; 71046; 76937; 80048; 80053; 80061; 82550; 83036; 83690; 84443; 84484; 85025; 85347; 85520; 85610; 85730; 92978; 93005; 93010; 93458; 94762; 96365; 99152; 99153; 99285-25; A9270; C1725; C1753; C1769; C1874; C1887; C1894; C8929; C9600; C9601; J1644; J2250; J3010; J7030; J7050; Q9957; Q9967